=== PATIENT | female | born 1985 | race Caucasian/White ===

== ENCOUNTER 2020-07-10 10:05 | Outpatient (CLI) | payer OTHER, SELFPAY ==
--- NOTE | 2020-07-10 10:07 | ECG_ITS ---
Measurements Intervals [place] Rate: 102 P: 51 MT: 157 QRS: 51 QRSD: 84 T: 39 QT: 325 QTc: 423 Interpretive Statements SINUS TACHYCARDIA DELAYED PRECORDIAL R/S TRANSITION BORDERLINE ECG Electronically Signed On 07-10-2020 10:25:06 TURRET LATHE TENDER by Juan Belle D.O.
[2020-07-10 10:37] LABS: Hematocrit 41.1 % (37.0-47.0)
== END 2020-07-10 10:06 | disposition home or self-care (01) ==
LOC: ANHSURGERY 10:07
PROVIDERS: Anesthesiology; PCP Family Medicine; Visit Provider Surgery Plastic and Reconstructive Surgery
DX: Z01.818 Encounter for other preprocedural examination (principal); Z98.890 Other specified postprocedural states
CPT/HCPCS: 36415; 85014; 85018; 93005

== ENCOUNTER 2020-07-15 00:52 | Outpatient (CLI) | payer OTHER, SELFPAY ==
[2020-07-15 18:31] LABS: SARS-CoV-2 RNA PCR Negative
== END 2020-07-15 00:53 | disposition home or self-care (01) ==
LOC: ANHCOVIDDT 00:52
PROVIDERS: PCP Family Medicine; Visit Provider Surgery Plastic and Reconstructive Surgery
DX: Z01.812 Encounter for preprocedural laboratory examination (principal); Z20.828 Contact with and (suspected) exposure to other viral communicable diseases
CPT/HCPCS: 87635; C9803; U0003

== ENCOUNTER 2020-07-18 00:55 | Day surgery (SDC) | payer OTHER, SELFPAY ==
[2020-07-04 13:42] VITALS: BMI 29.1
[2020-07-18] VITALS (10 sets, daily range): BP systolic 106–152; BP diastolic 53–102; PULSE 74–114; RESP 12–20; TEMP 36.1–37.1; O2SAT 100
[2020-07-18] MEDS: LACTATED RINGERS 1,000 ML 30 ML IV CONT ×2 (10:00→16:22)
[2020-07-18 10:06] LABS: Urine Cotinine NEGATIVE
[2020-07-18] MEDS: ONDANSETRON INJ 4 MG/2 ML VIAL IV PUSH ×2 (10:55→16:36)
--- NOTE | 2020-07-18 11:34 | WPDHPUPDATE1 ---
History and Physical Update Update Date/Time: 07/18/20 11:34 History and Physical has been reviewed, including an updated exam of the patient. There are NO changes in the patient's condition. Risks, benefits, and alternatives have been discussed and questions answered. This included the literature rate of morbidity and in particular rate with this procedure given the severity of that risk I was very upfront making sure well informed. Patient agrees to proceed with procedure.
--- NOTE | 2020-07-18 11:51 | P.PNAN_ITS ---
Anes - Initial Pre Proc Eval Procedure: Operation Date: 07/18/20 11:30 Proposed Procedures p Liposuction Mons Pubis, Liposuction Abdomen, Liposuction Back, Liposuction [place], - Vidal Plascencia MD s Cosmetic Fat Graft to Buttocks - Vidal Plascencia MD Date/Time: 07/18/20 11:51 Surgeon: Vidal Plascencia MD Pre Op Diagnosis: unacceptable cosmetic appearance Patient Data Age: 35 Gender: F Height: 5 ft 5 in Weight: 81 kg Last Vital Signs Temp 98.7 F 07/18/20 09:37 Pulse 93 07/18/20 09:37 Resp 16 07/18/20 09:37 BP 131/102 H 07/18/20 09:37 Pulse Ox 100 07/18/20 09:37 Allergies Allergy/AdvReac Type Severity Reaction Status Date / Time nickel Allergy Mild Rash Verified 07/18/20 09:34 Home Medications Medication Instructions Recorded Confirmed Type desogestrel 0.15 mg-ethinyl 1 tablet PO DAILY 06/07/20 07/18/20 History estradiol 0.03 mg tablet levothyroxine 25 mcg tablet 25 mcg PO DAILY 06/07/20 07/18/20 History thyroid (pork) [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] 30 mg PO DAILY 07/04/20 07/18/20 History Laboratory Tests 07/18/20 09:33 Cotinine Negative Patient hx anesthesia problems: none Family hx anesthesia problems: none PMFSH Past Medical History Medical History (Updated 07/18/20 @ 11:50 by Albin Hanley MD) Hypothyroidism Migraines Family History Family History (Updated 06/16/18 @ 08:45 by DOCTOR UNKNOWN) Mother Family history of malignant neoplasm of cervix Family history of malignant neoplasm of breast in first degree relative Other Diabetes mellitus Family history of seizure disorder Hypertension Social History Social History Smoking status: Never smoker Second hand tobacco smoke exposure: No Alcohol intake: current Substance use: never Living arrangements: with family Spiritual care concerns: No Anes - Eval Final PreProcedure Day of Procedure 07/18/20 11:51 Patient weight: overweight Heart: regular rate and rhythm Lungs: clear to auscultation Airway: Mallampati scale class II Neurological: alert and oriented Last oral intake: >/= 8 hours ASA classification: II Emergent: no Anesthetic plan: proceed Anesthesia type and monitoring: general ETT and standard monitoring Informed Consent: The patient's anesthetic plan and its attendant risks and benefits were discussed with the patient/family/POA. Questions were solicited and answers provided to the satisfaction of the patient/family/POA.
--- NOTE | 2020-07-18 12:04 | SUR.PREOP ---
1155-UP TO BR TO VOID.
[2020-07-18] MEDS: ceFAZolin 2 GM/D5W 50 ML 2 GM/50 ML BAG IVPB (12:10)
--- NOTE | 2020-07-18 12:19 | PM.PROC ---
Procedure Note - Detailed Date of procedure: 07/18/20 Pre-op diagnosis: unacceptable cosmetic appearance Post-op diagnosis: same Procedure performed: Guatemalan butt lift (BBL) Description of procedure: Risks, benefits, alternatives were discussed in extensive detail. I want her to be very realistic about the risks involved as well as expectations. She understands limitations of fat grafting and her ability to add volume. She understands the risk of . All questions answered and consent obtained. She was marked in the preoperative holding area. I made sure she verified our goals and markings. She was taken to the operating room placed supine on the operating room table. Anesthesia provided by anesthesiology and she was prepped circumferentially. I proceeded 1st on the abdomen and then in the right and left lateral decubitus position. An 11 blade was used to make stab incisions and I tumesced with a tumescent solution. Once adequate time for hemostasis I completed suction lipectomy using 4mm basket cannula and modification of S.A.F.E. technique. This was completed to a rolling pinch test based on preoperative planning. Steri strips were placed on the access sites. Once completed we placed her in a prone position. Care was taken to provide adequate protect all bony predominance in this position. She was again prepped and draped in a standard sterile fashion. Suction lipectomy of the back was completed again to a rolling pinch test as above.. Adipose tissue was in a gravity separation device. In the lower back I did place a 15 Noe drain which was sutured into place with 3-0 nylon. Once this was adequately with placed this into 60 cc syringes this was reinjected through the basket cannula. I was very careful to stay superficial to the fascia during gluteal fat grafting. This was done from a superior to inferior aspect making sure I was completely flat and there was no angle that could potentially passed deep. Volumes were added as outlined below proceeding from side to side into we were confident with the volume added based on her available adipose tissue and limitations of the procedure. Dressings were placed (body suit). Patient was woken taken to the PACU without difficulty. All instrument sponge counts were correct at the end of the case. Anesthesia: GETA Surgeon: Vidal Plascencia MD Estimated blood loss (mL): 70 Drains: Yes Packing: No Pathology: none sent Complications: No immediate complications Condition: stable Disposition: PACU Findings: Lipoaspirate 3500cc Gluteal fat grafting 700cc per side (1400cc total)
[2020-07-18] MEDS: fentaNYL CITRATE INJ (*CRX) 100 MCG/2 ML VIAL 25 MCG IV PUSH ×4 (16:45→17:13)
--- NOTE | 2020-07-18 16:52 | SUR.PHASEI ---
1640 - attempting to assist pt to lay on abdomen. pt crying. pt will only lay on far right side. no pressure noted to buttocks
[2020-07-18] MEDS: diphenhydrAMINE HCl INJ 50 MG/ML VIAL 12.5 MG IV PUSH ×2 (17:05→18:25)
[2020-07-18] MEDS: KETOROLAC 30 MG/ML VIAL (*BKC) IV PUSH (17:25)
--- NOTE | 2020-07-18 17:37 | SUR.PHASEI ---
1725 - dr. weston called and updated on pt's status. order received
== END 2020-07-18 19:12 | disposition home or self-care (01) ==
PROVIDERS: PCP Family Medicine; Visit Provider Surgery Plastic and Reconstructive Surgery
PROC: (CPT 15877; principal; 2020-07-18 11:30)
PROC: (CPT 15769; 2020-07-18 11:30)
DX: Z41.1 Encounter for cosmetic surgery (principal); E03.9 Hypothyroidism, unspecified
CPT/HCPCS: 15877; 80307; A9270; J0131; J0171; J0330; J0690; J1100; J1170; J1200; J1885; J2250; J2405; J2704; J3010; J7120

== ENCOUNTER 2020-08-09 14:41 | Outpatient (NON) | payer SELFPAY | END 2020-08-09 14:42 | LOC: ANHLAB 14:41 | PROVIDERS: PCP Family Medicine; Visit Provider Surgery Plastic and Reconstructive Surgery | DX: L02.91 Cutaneous abscess, unspecified (principal) | CPT/HCPCS: 87070; 87075; 87076; 87205 ==

== ENCOUNTER → 2020-12-25 13:06 | Outpatient (CLI) | payer OTHER, SELFPAY ==
--- NOTE | ~2020-12-25 | US_ITS ---
EXAMINATION: US soft tissue groin RT DATE: 12/25/2020 13:24 INDICATION: Right inguinal lymphadenopathy. TECHNIQUE: Multiple grayscale and Doppler ultrasound images of the right inguinal region were obtaine d. COMPARISON: None FINDINGS: There are normal lymph nodes in the right inguinal region in the patient's area of concern. IMPRESSION: 1. No abnormal mass or lymphadenopathy. Reviewed, dictated and finalized at location B.
== END ==
PROVIDERS: PCP Family Medicine; Visit Provider Nurse Practitioner
DX: R59.0 Localized enlarged lymph nodes (principal)
CPT/HCPCS: 76882

== ENCOUNTER → 2021-01-23 12:40 | Outpatient (CLI) | payer OTHER, SELFPAY ==
--- NOTE | ~2021-01-23 | MR_ITS ---
EXAMINATION: MR lumbar spine wo con DATE: 01/23/2021 13:42 INDICATION: Low back pain. Other intervertebral degeneration of disk, lumbar region. TECHNIQUE: Magnetic resonance imaging (MRI) of the lumbar spine was performed without intravenous con trast. Sequences included sagittal T2-weighted FSE, sagittal T2-weighted FS FSE, sagittal T1-weighted FSE, and axial T2-weighted FSE. COMPARISON: None FINDINGS: There is 3 mm retrolisthesis of L3 on L4. There is 3 mm levocurvature of lumbar spine. Vert ebral body heights are normal. There is mildly decreased disc height at L3-L4 and L5-S1. There is mod erately decreased disc height at L4-L5 with endplate remodeling. The distal spinal cord signal intens ity is normal. The conus medullaris is at L1. The following disc levels are specifically discussed: L1-L2: There is a central protrusion. There is mild bilateral facet joint osteoarthritis. There is no neural foraminal stenosis. There is no central canal stenosis. L2-L3: The disc does not extend beyond the endplate margin. There is mild bilateral facet joint osteo arthritis. There is no neural foraminal stenosis. There is no central canal stenosis. L3-L4: The disc is bulging and has an annular fissure. There is mild bilateral facet joint osteoarthr itis. There is mild bilateral neural foraminal stenosis. There is mild central canal stenosis. L4-L5: The disc is bulging. There is mild bilateral facet joint osteoarthritis. There is mild bilater al neural foraminal stenosis. There is no central canal stenosis. L5-S1: There is a right central extrusion with 6 mm superior extension. There is severe bilateral fac et joint osteoarthritis. There is mild bilateral neural foraminal stenosis. There is mild central can al stenosis. IMPRESSION: 1. Moderate lumbar spondylosis. Reviewed, dictated and finalized at location A.
== END ==
PROVIDERS: PCP Family Medicine; Visit Provider Family Medicine
DX: M51.36 Other intervertebral disc degeneration, lumbar region (principal); M47.896 Other spondylosis, lumbar region
CPT/HCPCS: 72148

== ENCOUNTER 2021-06-21 00:53 | Day surgery (SDC) | payer OTHER, SELFPAY ==
[2021-06-13 13:56] VITALS: BMI 29.9
[2021-06-21] VITALS (10 sets, daily range): BP systolic 98–143; BP diastolic 58–95; PULSE 63–91; RESP 12–18; TEMP 35.7–36.7; O2SAT 100; BMI 30.4
[2021-06-21] MEDS: LACTATED RINGERS 1,000 ML 30 ML IV CONT ×2 (09:10→13:22)
[2021-06-21 09:15] LABS: Urine Cotinine NEGATIVE
--- NOTE | 2021-06-21 09:20 | WPDANESEPPF ---
Anes - Initial Pre Proc Eval Procedure: Operation Date: 06/21/21 10:30 Proposed Procedures p Micronesian Buttock Lift - Vidal Plascencia MD Date/Time: 06/21/21 09:20 Surgeon: Vidal Plascencia MD Pre Op Diagnosis: unacceptable cosmetic appearance Patient Data Age: 36 Gender: F Height: 1.65 m Weight: 82.8 kg Allergies Allergy/AdvReac Type Severity Reaction Status Date / Time nickel Allergy Mild Rash Verified 06/13/21 13:54 Home Medications Medication Instructions Recorded Confirmed Type levothyroxine 25 mcg tablet 25 mcg PO DAILY 06/07/20 06/13/21 History thyroid (pork) [RIVETER HAND Thyroid] 30 mg PO DAILY 07/04/20 06/13/21 History atenolol 50 mg PO HS 06/13/21 06/21/21 History docusate sodium 100 mg capsule 100 mg PO DAILY #14 cap 06/13/21 06/13/21 Rx drospirenone (contraceptive) 4 mg PO HS 06/13/21 06/13/21 History [Slynd] ondansetron HCl 4 mg tablet 4 mg PO Q8H #21 tablet 06/13/21 06/13/21 Rx oxycodone-acetaminophen 5 mg-325 1 tablet PO Q6H PRN #15 tablet 06/17/21 06/17/21 Rx mg tablet phentermine 37.5 mg PO DAILY 06/21/21 06/21/21 History Laboratory Tests 06/21/21 08:57 Cotinine Negative Patient hx anesthesia problems: none Family hx anesthesia problems: none Results Review: All pre-operative results and documents have been reviewed as part of the pre-operative evaluation. [facility] Past Medical History Medical History (Updated 06/21/21 @ 09:20 by Andres Allen MD) Hypothyroidism Migraines Obesity Family History Family History Mother Family history of malignant neoplasm of cervix Family history of malignant neoplasm of breast in first degree relative Other Diabetes mellitus Family history of seizure disorder Hypertension Social History Social History Smoking status: Never smoker Second hand tobacco smoke exposure: No Alcohol intake: never Substance use: never Substance use type: does not use Living arrangements: with family Spiritual care concerns: No Anes - Eval Final PreProcedure Day of Procedure 06/21/21 09:20 Patient weight: obese Heart: regular rate and rhythm Lungs: clear to auscultation Airway: Mallampati scale class II Neurological: alert and oriented Last oral intake: >/= 8 hours ASA classification: II Emergent: no Anesthetic plan: proceed Anesthesia type and monitoring: general ETT and standard monitoring Results Review: All pre-operative results and documents have been reviewed as part of the pre-operative evaluation. Informed Consent: The patient's anesthetic plan and its attendant risks and benefits were discussed with the patient/family/POA. Questions were solicited and answers provided to the satisfaction of the patient/family/POA.
--- NOTE | 2021-06-21 09:33 | WPDHPUPDATE1 ---
History and Physical Update Update Date/Time: 06/21/21 09:33 History and Physical has been reviewed, including an updated exam of the patient. There are NO changes in the patient's condition. Risks, benefits, and alternatives have been discussed and questions answered. Patient agrees to proceed with procedure.
[2021-06-21] MEDS: ceFAZolin 2 GM/D5W 50 ML 2 GM/50 ML BAG IVPB (10:03)
--- NOTE | 2021-06-21 10:03 | W.PM.PROC2 ---
Procedure Note - Detailed Date of Procedure 06/21/21 Pre-op Diagnosis unacceptable cosmetic appearance Post-op Diagnosis same Procedure Performed Revision / additional fat grafting BBL Surgeon Vidal Plascencia MD Anesthesia general Indications She is interested in proceeding with revision of BBL adding additional volume in order to improve shape. Risks, benefits, alternatives were discussed again today in extensive detail. Want her to be very realistic about the risks involved as well as expectations. I explained this is unique procedure with unique risks and unique outcomes. Again we discussed risk of given the severe nature of this risk. She is well informed about the literature rates of this and understands this procedure carries the same risk. All questions were answered to her satisfaction today. Consent was obtained. Findings Lipoaspirate 2150 cc Gluteal fat grafting: Right - 500 cc Left = 500 cc Description of Procedure Patient was marked in the preoperative holding area. I spent extensive time making sure we had a clear understanding of her goals. She was taken to the operating room. Anesthesia provided by anesthesiology. We provide a circumferential prep. Draped in a standard sterile fashion. Surgical time-out was taken. Stab incisions were made and I tumesced with a tumescent solution. Using a 5 mm basket cannula based on S.A.F.E. principles completed suction lipectomy throughout the abdomen and flank based on her preoperative planning. This was placed into a gravity separation device for fat transfer. We did place the patient lateral decubitus position in order to maximize our outcome. She was then placed prone. Again to messing and suction lipectomy completed as above in order to maximize her contour obtained adipose tissue for fat grafting. Using the 5 mm basket cannula we proceeded with fat grafting in multiple planes and passes saying superficial based on her preoperative planning and goals in order to maximize for contour. Entry sites were sutured with 4-0 nylon single suture. She was awoke and taken to the PACU without difficulty. All instrument and sponge counts were correct at the end of the case. Estimated Blood Loss 30 Drains No Packing No Pathology none sent Complications No immediate complications Condition stable Disposition PACU
[2021-06-21] MEDS: TRANEXAMIC ACID 1,000MG/ISO100 1,000 MG/100 ML BAG 200 MG IVPB (10:14)
[2021-06-21] MEDS: LACTATED RINGERS IRRIG 1,000 ML, LIDOCAINE HCL 1% LOCAL INJ 50 ML, EPINEPHrine HCL INJ ... INFILTRATE ×2 (11:03→12:35)
--- NOTE | 2021-06-21 12:20 | SUR.OPER ---
pt prone position at 1215 and pt reprepped on back from nipple line to thighs, table to table with chloroprep.
[2021-06-21] MEDS: ONDANSETRON INJ 4 MG/2 ML VIAL IV PUSH (14:45)
[2021-06-21] MEDS: SCOPOLAMINE 1.5 MG PATCH TRANSDERM (15:14)
[2021-06-21] MEDS: oxyCODONE HCL (*CRX) 5 MG TAB IR PO (15:32)
== END 2021-06-21 16:25 | disposition home or self-care (01) ==
PROVIDERS: PCP Family Medicine; Visit Provider Surgery Plastic and Reconstructive Surgery
PROC: (CPT 15832; principal; 2021-06-21 10:30)
DX: Z41.1 Encounter for cosmetic surgery (principal); E06.3 Autoimmune thyroiditis; Z79.899 Other long term (current) drug therapy; E66.9 Obesity, unspecified; Z68.30 Body mass index [BMI] 30.0-30.9, adult
CPT/HCPCS: 15771; 15772 ×19; 80307; A9270; J0171; J0690; J1100; J1170; J2250; J2370; J2405; J2704; J2710; J3010; J7120

== ENCOUNTER → 2021-08-24 09:36 | Outpatient (CLI) | payer OTHER, SELFPAY ==
[2021-08-24 22:11] LABS: SARS-CoV-2 RNA PCR Negative
== END ==
PROVIDERS: PCP Family Medicine; Visit Provider Family Medicine
DX: R05.1 Acute cough (principal); Z20.822 Contact with and (suspected) exposure to COVID-19
CPT/HCPCS: C9803; U0003; U0005

== ENCOUNTER 2022-04-26 08:20 | Emergency (ER) | payer OTHER, SELFPAY ==
--- NOTE | ~2022-04-26 | XR_ITS ---
EXAMINATION: XR elbow LT min 3V DATE: 04/26/2022 09:29 INDICATION: Left arm pain. Fall. TECHNIQUE: 4 views of left elbow were obtained. COMPARISON: None. FINDINGS: Bone alignment is normal. There is a nondisplaced fracture of radial head. Joint spaces are normal. There is an elbow joint effusion. IMPRESSION: 1. Nondisplaced fracture of radial head. 2. Elbow joint effusion. Reviewed, dictated and finalized at location A.
--- NOTE | ~2022-04-26 | XR_ITS ---
EXAMINATION: XR shoulder LT min 2V DATE: 04/26/2022 09:29 INDICATION: Left arm pain. Fall. TECHNIQUE: 4 views of left shoulder were obtained. COMPARISON: None. FINDINGS: Bone alignment is normal. No fracture. Joint spaces are well maintained. IMPRESSION: 1. Normal left shoulder. Reviewed, dictated and finalized at location A. IMPRESSION: 1. Normal left shoulder.
--- NOTE | ~2022-04-26 | XR_ITS ---
EXAMINATION: XR wrist LT min 3V DATE: 04/26/2022 09:29 INDICATION: Left wrist pain TECHNIQUE: Posteroanterior, ulnar deviation, oblique, and lateral views of the left wrist were obtain ed. COMPARISON: None available FINDINGS: There is no fracture, dislocation, or subluxation. The bones, soft tissues, and joint space s are normal. IMPRESSION: 1. No acute osseous abnormality. Reviewed, dictated and finalized at location B.
[2022-04-26 08:29] VITALS: BP 134/95; PULSE 91; RESP 16; TEMP 36.3; O2SAT 100
[2022-04-26 08:30] VITALS: BP 134/95
--- NOTE | 2022-04-26 08:59 | ED.GENADULT ---
HPI - General Adult General Chief complaint: Extremity Injury, Upper Stated complaint: left arm injury Time Seen by Provider: 04/26/22 08:30 History of Present Illness HPI narrative: 37-year-old female presenting to the emergency department for evaluation of left arm pain. Patient states she was playing kickball last night when she fell landing on her left side. Patient said initially she did not have any significant pain but over the course of the night she had worsening pain diffusely to the left arm. Patient states she has pain left shoulder wrist and elbow. Patient denies any other pain or injury. Patient states intermittently she does have tingling of the hand. Related Data Home Medications Medication Instructions Recorded Confirmed levothyroxine 25 mcg tablet 25 mcg PO DAILY 06/07/20 06/21/21 thyroid (pork) 30 mg tablet (MANAGER SITE 30 mg PO DAILY 07/04/20 06/21/21 Thyroid) atenolol 25 mg tablet 50 mg PO HS 06/13/21 06/21/21 drospirenone (contraceptive) 4 mg 4 mg PO HS 06/13/21 06/13/21 (28) tablet (Slynd) phentermine 37.5 mg tablet 37.5 mg PO DAILY 06/21/21 06/21/21 Allergies Allergy/AdvReac Type Severity Reaction Status Date / Time nickel Allergy Mild Swelling Verified 04/26/22 08:34 Review of Systems Review of Systems: CONSTITUTIONAL: Denies fever, chills, or sweats. EYES: Denies visual changes, redness, or discharge. ENT: Denies rhinorrhea, congestion, sore throat, or otalgia. CARDIOVASCULAR: Denies chest pain, palpitations, or edema. RESPIRATORY: Denies cough or dyspnea. GASTROINTESTINAL: Denies abdominal pain, nausea, vomiting, or diarrhea. GENITOURINARY: Denies dysuria or hematuria. SKIN: Denies rash or itching. MUSCULOSKELETAL: See HPI NEUROLOGIC: Denies headache, numbness, or weakness. [facility] Past Medical History Medical History Hypothyroidism Migraines Obesity Family History Family History Mother Family history of malignant neoplasm of cervix Family history of malignant neoplasm of breast in first degree relative Other Diabetes mellitus Family history of seizure disorder Hypertension Social History Social History Smoking status: Never smoker Second hand tobacco smoke exposure: No Alcohol intake: never Substance use: never Substance use type: does not use Spiritual care concerns: No Exam Narrative: APPEARANCE: Well appearing, no pain, no distress, well-nourished. HEAD: normocephalic, atraumatic. EYES: PERRLA/EOMI, conjunctivae clear. NOSE: Normal no drainage RESPIRATORY: Airway patent, respirations nonlabored. Clear to auscultation bilaterally, no rales, rhonchi, wheezing. CARDIOVASCULAR: Regular rate and rhythm without murmurs rubs or gallops. ABDOMINAL: Soft, nontender, nondistended, normal bowel sounds MUSCULOSKELETAL: Tenderness in left shoulder elbow and wrist. Limited range of motion of the elbow NEURO: Alert. Cranial nerves II through XII intact. Grossly intact SKIN: Warm, dry. Normal Color Course Vital Signs Vital signs: Vital Signs Temperature 97.3 F L 04/26/22 08:29 Pulse Rate 91 04/26/22 08:29 Respiratory Rate 16 04/26/22 08:29 Blood Pressure 134/95 H 04/26/22 08:29 Pulse Oximetry 100 04/26/22 08:29 Temperature 97.3 F L 04/26/22 08:29 Pulse Rate 91 04/26/22 08:29 Respiratory Rate 16 04/26/22 08:29 Blood Pressure 134/95 H 04/26/22 08:30 Pulse Oximetry 100 04/26/22 08:29 Medical Decision Making Vital Signs Vital Signs: Vital Signs Temperature 97.3 F L 04/26/22 08:29 Pulse Rate 91 04/26/22 08:29 Respiratory Rate 16 04/26/22 08:29 Blood Pressure 134/95 H 04/26/22 08:29 Pulse Oximetry 100 04/26/22 08:29 Temperature 97.3 F L 04/26/22 08:29 Pulse Rate 91 04/26/22 08:29 Respiratory Rate 16 04/26/22 08:29 Blood P
[2022-04-26] MEDS: ACETAMINOPHEN 500 MG TABLET 1000 MG PO (10:01)
== END 2022-04-26 10:38 | disposition home or self-care (01) ==
PROVIDERS: Emergency Provider Emergency Medicine; PCP Family Medicine
DX: S52.125A Nondisplaced fracture of head of left radius, initial encounter for closed fracture (principal); W18.39XA Other fall on same level, initial encounter; Y93.6A Activity, physical games generally associated with school recess, summer camp and children; E03.9 Hypothyroidism, unspecified; E66.9 Obesity, unspecified; Z68.29 Body mass index [BMI] 29.0-29.9, adult
CPT/HCPCS: 73030; 73080; 73110; 99284; A4565; A9270

== ENCOUNTER 2024-10-21 09:13 | Outpatient (CLI) | payer OTHER, SELFPAY ==
--- NOTE | ~2024-10-21 | US_ITS ---
EXAMINATION: US OB transvaginal DATE: 10/21/2024 09:41 INDICATION: Threatened during first trimester TECHNIQUE: Real-time pelvic ultrasound utilizing transvaginal probe was performed. The interpreting r adiologist was not present for the study. COMPARISON: None. FINDINGS: The uterus measures 9.1 x 5.4 x 5.8 cm. There is an intrauterine gestational sac with double deciduo us sign but without discernible yolk sac or pole likely due to early stage of . The me an sac diameter measures 7 mm, which is below limits for estimation of gestational age. The right ovary measures 1.8 x 1.3 x 1.2 cm. The left ovary measures 3.0 x 2.6 x 2.5 cm. Vascular cory w identified at both ovaries on color Doppler. There is no free fluid in the pelvis. IMPRESSION: 1. Single 7 mm likely gestational sac in the uterus without discernible yolk sac and pole likel y due to early stage of . Could consider follow-up ultrasound in 1-2 weeks to confirm viable and establish dating of . Reviewed, dictated and finalized at location L. TS SPECIALIST IMPRESSION: 1. Single 7 mm likely gestational sac in the uterus without discernible yolk sa c and pole likely due to early stage of . Could consider follow- up ultrasound in 1-2 weeks to confirm viable and establish dating of .
== END 2024-10-21 09:14 | disposition home or self-care (01) ==
LOC: MICIMG 09:14
PROVIDERS: PCP Nurse Practitioner Women's Health; Visit Provider Nurse Practitioner Women's Health
DX: O20.0 Threatened abortion (principal); Z3A.00 Weeks of gestation of pregnancy not specified
CPT/HCPCS: 76817